=== PATIENT | male | born 1985 | race Caucasian/White ===

== ENCOUNTER 2018-10-14 18:15 | Emergency (ER) | payer BC ==
[2018-10-14 18:43] VITALS: BP 132/76
--- NOTE | 2018-10-14 19:25 | UC ---
General HPI - HPI Summary HPI Summary: pt was here on 10/04/18 and tx with Biaxin for a sinus infection. he did have a cough at that time. the sinus issue has resolved; however, he has had a worsening in his cough with chest congestion and wheezing. no cp or fever. no relief with daquil/Nyquil. + hx asthma but no issues in years. it was mostly sports related. he does have an albuterol inhaler. - History of Current Complaint Chief Complaint: UCRespiratory Stated Complaint: COUGH Time Seen by Provider: 10/14/18 19:19 Hx Obtained From: Patient Onset/Duration: Gradual Onset Timing: Constant Pain Intensity: 3 - Allergy/Home Medications Allergies/Adverse Reactions: Allergies Allergy/AdvReac Type Severity Reaction Status Date / Time Penicillins Allergy Unknown Unknown Verified 10/14/18 18:39 Reaction Details PMH/Surg Hx/FS Hx/Imm Hx Endocrine History: Thyroid Disease Respiratory History: Asthma - Surgical History Surgical History: Yes Surgery Procedure, Year, and Place: sinus 05/2017 - Family History Known Family History: Positive: None - Social History Occupation: Employed Full-time Lives: With Family Alcohol Use: Occasionally Alcohol Amount: few times a week Substance Use Type: None Smoking Status (MU): Never Smoked Tobacco Review of Systems All Other Systems Reviewed And Are Negative: Yes Constitutional: Negative: Fever, Chills Eyes: Negative: Drainage, Eye Redness ENT: Negative: Sore Throat, Ear Ache, Sinus Congestion Respiratory: Positive: Shortness Of Breath, Cough Cardiovascular: Negative: Palpitations, Chest Pain Gastrointestinal: Negative: Vomiting, Diarrhea, Nausea Physical Exam Triage Information Reviewed: Yes Appearance: Well-Appearing Vital Signs: Initial Vital Signs Temp 97 F 10/14/18 18:39 Pulse 78 10/14/18 18:39 Resp 16 10/14/18 18:39 BP 132/76 10/14/18 18:39 Pulse Ox 98 10/14/18 18:39 Vital Signs Reviewed: Yes Eyes: Positive: Conjunctiva Clear ENT: Positive: Pharynx normal, TMs normal. Negative: Nasal congestion, Nasal drainage Neck: Positive: Supple, Nontender, No Lymphadenopathy Respiratory: Positive: No respiratory distress, Decreased breath sounds. Negative: Crackles, Rhonchi, Wheezing Cardiovascular: Positive: RRR, No Murmur Abdomen Description: Positive: Nontender Musculoskeletal: Positive: ROM Intact Neurological: Positive: Alert Psychological: Positive: Age Appropriate Behavior Skin Exam: Normal Diagnostics - Radiology No standard instances Radiology Interpretation Completed By: ED Physician - cxr=nad Re-Evaluation - Re-Evaluation First Eval Re-Evaluation Time: 19:47 Change: Improved - much better aeration Course/Dx - Differential Dx - Multi-Symptom Differential Diagnoses: Other - non toxic. not hypoxic. cxr=unremarkable. antibiotic not indicated. - Diagnoses Provider Diagnosis: Bronchitis, Asthma Discharge ED - Sign-Out/Discharge Documenting (check all that apply): Patient Departure All imaging exams completed and their final reports reviewed: No - Discharge Plan Condition: Stable Disposition: HOME Prescriptions: Albuterol HFA INHALER* [Ventolin HFA Inhaler*] 2 puff INH Q6H #1 mdi predniSONE [Prednisone 20 MG TAB] 40 mg PO DAILY #8 tablet Patient Education Materials: Asthma (ED), Acute Bronchitis (ED) Referrals: Andreas Sherman MD [Primary Care Provider] - 5 Days - Billing Disposition and Condition Condition: STABLE Disposition: Home - Attestation Statements Provider Attestation: This patient was not seen by me. I was available for consult. LEXI
[2018-10-14] MEDS: predniSONE TAB* 20 MG PO ONE (19:34)
[2018-10-14] MEDS: Albuterol 2.5 MG/3 ML NEB.SOL* (0.083%) INH ONE (19:35)
--- NOTE | 2018-10-15 08:53 | UC ---
- Progress Note Progress Note: Reviewed record, chest xray negative. Course/Dx - Diagnoses Provider Diagnoses: Bronchitis, Asthma Discharge ED - Sign-Out/Discharge Documenting (check all that apply): Patient Departure All imaging exams completed and their final reports reviewed: Yes - Discharge Plan Condition: Stable Disposition: HOME Prescriptions: Albuterol HFA INHALER* [Ventolin HFA Inhaler*] 2 puff INH Q6H #1 mdi predniSONE [Prednisone 20 MG TAB] 40 mg PO DAILY #8 tablet Patient Education Materials: Asthma (ED), Acute Bronchitis (ED) Referrals: Andreas Sherman MD [Primary Care Provider] - 5 Days - Billing Disposition and Condition Condition: STABLE Disposition: Home
== END 2018-10-14 19:54 | disposition home or self-care (01) ==
LOC: UCCORT 18:15
DX: J45.909 Unspecified asthma, uncomplicated (principal)
CPT/HCPCS: 71046; 99212; G0463; J7512

== ENCOUNTER 2018-11-11 16:03 | Emergency (ER) | payer BC ==
[2018-11-11 16:42] VITALS: BP 110/62
--- NOTE | 2018-11-11 17:05 | UC ---
Respiratory Complaint HPI - HPI Summary HPI Summary: 33 yo male with cough since late September He was seen here then and started on Biaxin for sinusitis Sinus symptoms disappeared Cough has persisted was seen here 10/14 and was rxed with albuterol and prednisone no change in symptoms no CP or SOB f/c no wt loss CXR 10/14 NAD some dyspepsia - History of Current Complaint Chief Complaint: UCGeneralIllness Stated Complaint: COUGH Time Seen by Provider: 11/11/18 16:46 Hx Obtained From: Patient Onset/Duration: Gradual Onset, Lasting Weeks Timing: Constant Severity Initially: Mild Severity Currently: Moderate Pain Intensity: 0 Pain Scale Used: 0-10 Numeric Character: Cough: Nonproductive Aggravating Factors: Nothing Alleviating Factors: Nothing Associated Signs And Symptoms: Negative: Dyspnea, Fever, Chills, Pleuritic Chest Pain, Wheezing, Hemoptysis, Dizziness, Calf Pain, Calf Swelling, Edema, URI, Nasal Congestion, Hoarseness, Sinus Discomfort - Allergies/Home Medications Allergies/Adverse Reactions: Allergies Allergy/AdvReac Type Severity Reaction Status Date / Time Penicillins Allergy Unknown Unknown Verified 11/11/18 16:42 Reaction Details PMH/Surg Hx/FS Hx/Imm Hx Previously Healthy: Yes Respiratory History: Bronchitis - Surgical History Surgical History: Yes Surgery Procedure, Year, and Place: sinus 05/2017 - Family History Known Family History: Positive: None Negative: Cardiac Disease, Hypertension, Diabetes - Social History Alcohol Use: Occasionally Alcohol Amount: few times a week Substance Use Type: None Smoking Status (MU): Never Smoked Tobacco Review of Systems All Other Systems Reviewed And Are Negative: Yes Constitutional: Positive: Negative Skin: Positive: Negative Eyes: Positive: Negative ENT: Positive: Negative Respiratory: Positive: Cough Cardiovascular: Positive: Negative Gastrointestinal: Positive: Other - mild dyspepsia/burping Genitourinary: Positive: Negative Motor: Positive: Negative Neurovascular: Positive: Negative Musculoskeletal: Positive: Negative Neurological: Positive: Negative Psychological: Positive: Negative Physical Exam Triage Information Reviewed: Yes Appearance: Well-Appearing, No Pain Distress, Well-Nourished Vital Signs: Initial Vital Signs Temp 96.8 F 11/11/18 16:37 Pulse 62 11/11/18 16:37 Resp 18 11/11/18 16:37 BP 110/62 11/11/18 16:37 Pulse Ox 98 11/11/18 16:37 Vital Signs Reviewed: Yes Eyes: Positive: Conjunctiva Clear ENT: Positive: Hearing grossly normal, Uvula midline. Negative: Nasal congestion, Nasal drainage, Tonsillar swelling, Tonsillar exudate, Trismus, Muffled voice, Hoarse voice, Sinus tenderness Dental Exam: Normal Neck: Positive: Supple, Nontender, No Lymphadenopathy Respiratory: Positive: Lungs clear, Normal breath sounds, No respiratory distress, No accessory muscle use. Negative: Respiratory distress, Accessory muscle use Cardiovascular: Positive: RRR Abdominal Exam: Normal Musculoskeletal: Positive: No Edema Neurological: Positive: Alert Psychological Exam: Normal Skin Exam: Normal Respiratory Course/Dx - Differential Dx/Diagnosis Provider Diagnosis: Cough, Dyspepsia Discharge ED - Sign-Out/Discharge Documenting (check all that apply): Patient Departure All imaging exams completed and their final reports reviewed: No Studies - Discharge Plan Condition: Stable Disposition: HOME Prescriptions: Benzonatate CAP* [Tessalon CAP*] 100 - 200 mg PO TID PRN #28 cap PRN Reason: Cough Omeprazole 20 mg PO DAILY #14 tablet. Patient Education Materials: Acute Cough (ED) Referrals: Andreas Sherman MD [Primary Care Provider] - 2 Weeks Additional Instructions: You cough has been present for weeks Currently I find no evidence of infection The cough may be due to acid reflux or due to a post bronchitic cough due to your recent illness Recheck for new or worsening symptoms or if not better in 2 weeks - Billing Disposition and Condition Condition: STABLE Disposition: Home
== END 2018-11-11 17:00 | disposition home or self-care (01) ==
LOC: UCCORT 16:03
DX: R05 Cough (principal); R10.13 Epigastric pain; Z88.0 Allergy status to penicillin
CPT/HCPCS: 99212; G0463